=== PATIENT | male | born 1980 | race Caucasian/White ===

== ENCOUNTER 2021-07-31 21:11 | Emergency (ER) | payer BC, OTHER ==
--- NOTE | 2021-07-31 22:06 | EDM.PDOC ---
ED HPI GENERAL MEDICAL PROBLEM - General Chief Complaint: Skin Complaint Stated Complaint: LUMP LEFT SIDE OF GROIN AREA Time Seen by Provider: 07/31/21 21:42 Source of Information: Reports: Patient History Limitations: Reports: No Limitations - History of Present Illness INITIAL COMMENTS - FREE TEXT/NARRATIVE: Mr. aLird is a very pleasant 41-year-old gentleman who now presents to the ED stating that he has been experiencing a lump in his left groin, primarily when he is upright, for the past 5 months, approximately. When present, it is sometimes painful, but it has been becoming more painful more often, recently. He states that he wears a harness while at work, and that the harness lies directly over the lump, which is particularly painful. He has not taken any [id number] or home remedies to address his symptoms, and he has not had any medical evaluation prior to tonight. Here in the ED, the patient's initial BP is found to be mildly elevated at 149/79, otherwise, he is hemodynamically stable, afebrile, saturating 98% on room air. He appears to be comfortable, in no acute distress. Other than the left groin lump, the patient denies having a recent fever, chills, sore throat, ear pain, nasal or sinus congestion, cough, dyspnea, chest pain, palpitations, nausea, vomiting, constipation, diarrhea, abdominal pain, urinary symptoms, recent weight gain or weight loss, recent bloody bowel movements or black bowel movements, recent joint aches, headaches, or rashes. The patient's PCP is Elvira Iyer NP. He has not received a COVID vaccination. Left Groin Pain Score (Numeric/FACES): 5 - Related Data Allergies Allergy/AdvReac Type Severity Reaction Status Date / Time No Known Allergies Allergy Verified 07/31/21 21:33 Home Meds: Home Meds . [No Known Home Meds] 07/31/21 [History] Past Medical History Musculoskeletal History: Reports: Gout (suspected, not confirmed) Endocrine/Metabolic History: Reports: Obesity/BMI 30+ - Past Surgical History HEENT Surgical History: Reports: Oral Surgery (dental extractions) Social & Family History - Tobacco Use Tobacco Use Status *Q: Current Every Day Tobacco User Tobacco Use Within Last Twelve Months: Smokeless Tobacco (Chews 1 can/month) Years of Tobacco use: 24 Packs/Tins Daily: 0.5 Packs/Tins Daily Comment: Down from 1 ppd Tobacco Use Comment: Stated smoking 1996 - Caffeine Use Caffeine Use: Reports: None - Alcohol Use Alcohol Use History: Yes Alcohol Use Frequency: Socially - Recreational Drug Use Recreational Drug Use: Yes Drug Use in Last 12 Months: No Recreational Drug Type: Reports: Marijuana/Hashish (last smoked 2017), Methamphetamine (last ate, snorted, smoked 2005) - Living Situation & Occupation Living situation: Reports: , with Spouse, with Family (3 kids) Occupation: Employed ([employer]) ED ROS GENERAL - Review of Systems Review Of Systems: Comprehensive ROS is negative, except as noted in HPI. ED EXAM, SKIN/RASH Exam: See Below Exam Limited By: No Limitations General Appearance: Alert, WD/WN, No Apparent Distress Eye Exam: Bilateral Eye: EOMI, Normal Inspection Ears: Normal External Exam, Hearing Grossly Normal Nose: Normal Inspection Throat/Mouth: Normal Inspection, Normal Lips, Normal Voice, No Airway Compromise Head: Atraumatic, Normocephalic Neck: Normal Inspection, Full Range of Motion Respiratory/Chest: No Respiratory Distress, Lungs Clear, Normal Breath Sounds, No Accessory Muscle Use Cardiovascular: Normal Peripheral Pulses, Regular Rate, Rhythm, No Edema, No Gallop, No JVD, No Murmur, No Rub Peripheral Pulses: 3+: Radial (L), Radial (R), Femoral (L), Femoral (R) GI/Abdominal: Normal Bowel Sounds, Soft, Non-Tender (including the LLQ), No Organomegaly, No Distention, No Abnormal Bruit, No Mass (Male) Exam: Circumcised, Hernia (left inguinal, palpable only when upright, easily reduced) Back Exam: Normal Inspection, Full Range of Motion, NT Extremities: Normal Inspection, Normal Range of Motion, No Pedal Edema, Normal Capillary Refill Neurological: Alert, Oriented, Normal Cognition, No Motor/Sensory Deficits Psychiatric: Normal Affect Skin: Warm, Dry, Intact, Normal Color, No Rash Lymphatic: No Adenopathy Course - Vital Signs Last Recorded V/S: Last Vital Signs Temp 35.5 C L 07/31/21 21:29 Pulse 73 07/31/21 21:29 Resp 16 07/31/21 21:29 BP 149/79 H 07/31/21 21:29 Pulse Ox 98 07/31/21 21:29 - Re-Assessments/Exams Free Text/Narrative Re-Assessment/Exam: 07/31/21 21:58 The patient has an easily-reducible left inguinal hernia, but the fact that it is causing him progressively worsening pain is an indication for surgical rep air. I will refer him to Dr. Field. Departure - Departure Time of Disposition: 21:59 Disposition: Home, Self-Care 01 Condition: Good Clinical Impression: Left inguinal hernia - Discharge Information *PRESCRIPTION DRUG MONITORING PROGRAM REVIEWED*: Not Applicable *COPY OF PRESCRIPTION DRUG MONITORING REPORT IN PATIENT ADITYA: Not Applicable Referrals: Elvira Iyer NP [Primary Care Provider] - King Field MD [Physician] - Additional Instructions: You were seen in the emergency room for approximately 5 months of a lump felt in your left groin area, that has become increasingly painful. Based on your history and physical examination, you have a left inguinal hernia. We recommend you follow-up with the Surgeon Dr. King Field for further evaluation and treatment. If any other problems, please do not hesitate to return to the ER. Sepsis Event Note (ED) - Evaluation Sepsis Screening Result: No Definite Risk - Focused Exam Vital Signs: Vital Signs Temp Pulse Resp BP Pulse Ox 07/31/21 21:29 35.5 C L 73 16 149/79 H 98
== END 2021-07-31 22:09 | disposition home or self-care (01) ==
LOC: JD.ED 21:11
DX: K40.90 Unilateral inguinal hernia, without obstruction or gangrene, not specified as recurrent (principal); E66.9 Obesity, unspecified; Z72.0 Tobacco use; Z68.29 Body mass index [BMI] 29.0-29.9, adult
CPT/HCPCS: 99283

== ENCOUNTER 2021-08-13 09:30 | Day surgery (SDC) | payer SELFPAY ==
[~2021-08-13 09:30] MED LIST: Dexamethasone 4 MG/ML 5 ML MDV ONE; Ketorolac 30 MG/ML SDV ONE; Lactated Ringers 1,000 ML IV SCH; Lidocaine 1%/Sod Bicarbonate in NS 8.4% 1 ML Syringe IDERM PRN; Midazolam 1 MG/ML 2 ML SDV ONE; Ondansetron 4 MG/2 ML SDV ONE; Propofol 200 MG/20 ML SDV ONE; Sodium Chloride 0.9% 10 ML Syringe FLUSH PRN; fentaNYL 250 MCG/5 ML SDV ONE
[2021-08-13] MEDS ORDERED: ceFAZolin 1 GM Vial ONE (10:11)
[2021-08-13] MEDS ORDERED: Bupivacaine 0.5%/EPINEPHrine 1:200,000 50 ML MDV ONE (10:16)
--- NOTE | 2021-08-13 10:22 | PCM.PREANE ---
Preanesthetic Assessment - Procedure Proposed Procedure: Open left inguinal her Repair with mesh - Anesthesia/Transfusion/Family Hx Anesthesia History: Prior Anesthesia Without Reaction Family History of Anesthesia Reaction: No Transfusion History: No Prior Transfusion(s) - Review of Systems General: No Symptoms Pulmonary: Cough (smokers cough productive in morning) Cardiovascular: No Symptoms Gastrointestinal: No Symptoms Neurological: No Symptoms Other: Reports: None - Physical Assessment NPO Status Date: 08/12/21 NPO Status Time: 00:00 Height: 1.85 m Weight: 99.1 kg ASA Class: 2 Mental Status: Alert & Oriented x3 Airway Class: Mallampati = 1 Dentition: Reports: Normal Dentition, [place](s), Broken Tooth/Teeth (top front chipped tooth) Thyro-Mental Finger Breadths: 3 Mouth Opening Finger Breadths: 3 ROM/Head Extension: Full Lungs: Clear to Auscultation, Normal Respiratory Effort Cardiovascular: Regular Rate, Regular Rhythm - Allergies Allergies/Adverse Reactions: Allergies Allergy/AdvReac Type Severity Reaction Status Date / Time No Known Allergies Allergy Verified 08/12/21 18:40 - Blood Blood Available: No Product(s) Available: None - Anesthesia Plan Pre-Op Medication Ordered: None - Acknowledgements Anesthesia Type Planned: General Anesthesia Pt an Appropriate Candidate for the Planned Anesthesia: Yes Alternatives and Risks of Anesthesia Discussed w Pt/Guardian: Yes Pt/Guardian Understands and Agrees with Anesthesia Plan: Yes PreAnesthesia Questionnaire HEENT History: Reports: None Cardiovascular History: Reports: None Respiratory History: Reports: None Gastrointestinal History: Reports: None Genitourinary History: Reports: None SLOT SUPERVISOR History: Reports: None Musculoskeletal History: Reports: Gout Neurological History: Reports: None Psychiatric History: Reports: None Endocrine/Metabolic History: Reports: None, Obesity/BMI 30+ Hematologic History: Reports: None Immunologic History: Reports: None Oncologic (Cancer) History: Reports: None Dermatologic History: Reports: None - Infectious Disease History Infectious Disease History: Reports: None - Past Surgical History HEENT Surgical History: Reports: Oral Surgery Cardiovascular Surgical History: Reports: None Respiratory Surgical History: Reports: None GI Surgical History: Reports: None Female Surgical History: Reports: None Male Surgical History: Reports: None Endocrine Surgical History: Reports: None Neurological Surgical History: Reports: None Musculoskeletal Surgical History: Reports: None Oncologic Surgical History: Reports: None Dermatological Surgical History: Reports: None - SUBSTANCE USE Tobacco Use Status *Q: Current Every Day Tobacco User ("sometimes") Tobacco Use Within Last Twelve Months: Cigarettes, Snuff/Dip Second Hand Smoke Exposure: Yes Days Per Week of Alcohol Use: 1 Number of Drinks Per Day: 0 Total Drinks Per Week: 0 Recreational Drug Use History: Yes Recreational Drug Type: Reports: Marijuana/Hashish - HOME MEDS Home Medications: Home Meds . [No Known Home Meds] 07/31/21 [History] - CURRENT (IN HOUSE) MEDS Current Meds: Current Medications Lactated Ringer's (Ringers, Lactated) 1,000 mls @ 125 mls/hr IV ASDIRECTED SAMIA Lidocaine/Sodium Bicarbonate (Lidocaine 1%/Sod Bicarbonate In Ns 8.4% 1 Ml Syringe) 0.25 ml IDERM ONETIME PRN PRN Reason: Prior to IV Start Sodium Chloride (Sodium Chloride 0.9% 10 Ml Syringe) 10 ml FLUSH ASDIRECTED PRN PRN Reason: Keep Vein Open Discontinued Medications Cefazolin Sodium (Cefazolin 1 Gm Vial) Confirm Administered Dose 2 gm .ROUTE .STK-MED ONE Stop: 08/13/21 10:12 Dexamethasone (Dexamethasone 4 Mg/Ml 5 Ml Mdv) Confirm Administered Dose 20 mg .ROUTE .STK-MED ONE Stop: 08/13/21 09:30 Fentanyl (Fentanyl 250 Mcg/5 Ml Sdv) Confirm Administered Dose 250 mcg .ROUTE .STK-MED ONE Stop: 08/13/21 09:31 Ketorolac Tromethamine (Ketorolac 30 Mg/Ml Sdv) Confirm Administered Dose 30 mg .ROUTE .STK-MED ONE Stop: 08/13/21 09:30 Midazolam HCl (Midazolam 1 Mg/Ml 2 Ml Sdv) Confirm Administered Dose 2 mg .ROUTE .STK-MED ONE Stop: 08/13/21 09:31 Ondansetron HCl (Ondansetron 4 Mg/2 Ml Sdv) Confirm Administered Dose 4 mg .ROUTE .STK-MED ONE Stop: 08/13/21 09:30 Propofol (Propofol 200 Mg/20 Ml Sdv) Confirm Administered Dose 200 mg .ROUTE .STK-MED ONE Stop: 08/13/21 09:31
[2021-08-13] MEDS ORDERED: HYDROmorphone 0.5 MG/0.5 ML Syringe IVPUSH PRN (11:22)
[2021-08-13] MEDS ORDERED: Ondansetron 4 MG/2 ML SDV IVPUSH PRN (11:22)
[2021-08-13] MEDS ORDERED: fentaNYL 100 MCG/2 ML SDV IVPUSH PRN (11:22)
--- NOTE | 2021-08-13 12:30 | PCM.POSTAN ---
POST ANESTHESIA ASSESSMENT - MENTAL STATUS Mental Status: Alert, Oriented - VITAL SIGNS Vital Signs: Last Vital Signs Temp 36.6 C 08/13/21 10:10 Pulse 77 08/13/21 10:10 Resp 18 08/13/21 10:10 BP 138/84 08/13/21 10:10 Pulse Ox 97 08/13/21 10:10 - RESPIRATORY Respiratory Status: Respiratory Rate WNL, Airway Patent, O2 Saturation Stable, Supplemental Oxygen - CARDIOVASCULAR CV Status: Pulse Rate WNL, Blood Pressure Stable - GASTROINTESTINAL GI Status: No Symptoms - PAIN Pain Score: 0 - POST OP HYDRATION Hydration Status: Adequate & Stable
--- NOTE | 2021-08-13 12:34 | PCM.PRNOTE ---
- Free Text/Narrative Note: Date: 08/13/2021 Operation: open left inguinal hernia repair Surgeon: King Field MD Antibiotic: 2 g ancef pre-incision EBL: minimal Specimen: none Mesh: 9 x 15 polyester ProGrip mesh cut to size Detailed Report: The patient was taken to the operating room and placed on the table in supine position. Timeout was performed and LMA anesthesia was initiated. Abdominal hair was clipped and the lower abdomen was prepped and draped in usual sterile fashion. A marker was used to indicate the projection of the inguinal ligament from the left ASIS to the pubic tubercle. 20 cc 0.5% Marcaine with epinephrine was used for local anesthetic along the planned skin incision intradermally and in the subcutaneous tissue. A 6 cm incision was made through skin with a scalpel. Wheat [place] retractors were placed and dissection was carried down to the external oblique aponeurotic fibers. The external inguinal ring was identified. An additional 10 cc of local anesthetic was injected just deep to the aponeurosis. A small stab incision was made with a 15 blade scalpel and Metzenbaum scissors were used to lightly separate the underlying canal contents. Scissors were used to open the roof of the inguinal canal, and Kitner dissector was used to bluntly free the canal contents. The spermatic cord was encircled with a Adelia drain at the level of the pubic tubercle. Careful blunt dissection was used to identify the hernia sac and separate this from surrounding structures. The sac was freed and dissected back to the internal ring. Scissors were used to open the hernia sac and the finger was inserted into the peritoneal cavity. The sac was clamped cut and ligated with Vicryl suture. Next, a 9 x 15 cm piece of polyester progrip mesh was introduced to the field. This was cut to size for implantation and reconstruction of the floor of the inguinal canal. 2-0 Prolene suture was used to secure the mesh at Moiz's ligament with good inferior and medial overlap. The inferolateral edge of the mesh was sutured with 2-0 Prolene to the shelving edge of the inguinal ligament. A slit was cut in the mesh in order to permit passage of the spermatic cord. These leaflets were brought around the spermatic cord and secured to the himself, recreating the internal ring using the adherent properties of the mesh. The mesh was laid flat deep to the external oblique aponeurosis. A medial securing stitch was placed between the mesh and the internal oblique aponeurosis, taking care to avoid the iliohypogastric nerve. With the mesh in good position, the external oblique aponeurosis was closed with running 3-0 Vicryl suture. Maynor's fascia was closed over top of this with interrupted 3-0 Vicryl sutures, and subcutaneous tissue was reapproximated with interrupted sutures as well. Skin was closed with running 4-0 Vicryl and dressed with Dermabond. An additional 10 cc of local anesthetic was injected for regional block. The patient tolerated the procedure well, and the left testicle was palpated in proper position in the scrotum at the conclusion of the case.
[2021-08-13] MEDS ORDERED: Meperidine 50 MG/ML Vial IVPUSH ONE (12:45)
--- NOTE | 2021-08-13 13:10 | PCM48HPAN ---
Post Anesthesia Note - EVALUATION WITHIN 48HRS OF ANESTHETIC Vital Signs in Normal Range: Yes Patient Participated in Evaluation: Yes Respiratory Function Stable: Yes Airway Patent: Yes Cardiovascular Function Stable: Yes Hydration Status Stable: Yes Pain Control Satisfactory: Yes Nausea and Vomiting Control Satisfactory: Yes Mental Status Recovered: Yes Vital Signs: Last Vital Signs Temp 36.0 C L 08/13/21 12:22 Pulse 63 08/13/21 12:37 Resp 16 08/13/21 13:00 BP 151/87 H 08/13/21 13:00 Pulse Ox 97 08/13/21 13:00
== END 2021-08-13 13:52 | disposition home or self-care (01) ==
LOC: JD.SDS 09:30
PROVIDERS: ATTEND Surgery
DX: K40.90 Unilateral inguinal hernia, without obstruction or gangrene, not specified as recurrent (principal); F17.210 Nicotine dependence, cigarettes, uncomplicated; M10.9 Gout, unspecified; E66.9 Obesity, unspecified; Z98.890 Other specified postprocedural states; Z68.29 Body mass index [BMI] 29.0-29.9, adult
CPT/HCPCS: 49505; J0690; J1100; J1885; J2250; J2405; J2704; J3010; J3490; J7120; 00830; C1781

== ENCOUNTER 2022-05-14 19:40 | Emergency (ER) | payer BC, MEDICAID ==
[2022-05-14] MEDS ORDERED: Acetaminophen/oxyCODONE 325-5 MG Tab PO ONE ×2 (20:08→21:29)
== END 2022-05-14 21:35 | disposition home or self-care (01) ==
LOC: JD.ED 19:40
DX: S43.101A Unspecified dislocation of right acromioclavicular joint, initial encounter (principal); F17.210 Nicotine dependence, cigarettes, uncomplicated; E66.9 Obesity, unspecified; Z68.31 Body mass index [BMI] 31.0-31.9, adult; W01.10XA Fall on same level from slipping, tripping and stumbling with subsequent striking against unspecified object, initial encounter
CPT/HCPCS: 73030; 99283; A9270

== ENCOUNTER 2025-09-20 08:58 | Emergency (ER) | payer SELFPAY | END 2025-09-20 10:17 | disposition left against medical advice (07) | LOC: JD.ED 08:58 | DX: S53.401A Unspecified sprain of right elbow, initial encounter (principal); F17.200 Nicotine dependence, unspecified, uncomplicated; X50.1XXA Overexertion from prolonged static or awkward postures, initial encounter; Y93.89 Activity, other specified | CPT/HCPCS: 73080-26-RT; 73080-RT; 99283 ==